=== PATIENT | male | born 1970 | race Caucasian/White ===

== ENCOUNTER → 2017-12-12 | Outpatient (CLI) | payer BC ==
--- NOTE | 2017-12-12 14:23 | KCIC ---
MR of the right knee Indication: Right knee pain, recent injury last 6 weeks. Previous meniscal surgery. Pain medial and anterior and posterior. Technique: The standard multiplanar sequences are obtained. FINDINGS: Artifact: No significant image degradation. Medial meniscus: Degenerative tear Lateral meniscus: Intact. Anterior cruciate ligament: Intact Posterior cruciate ligament: Intact Medial collateral ligament: Intact. Lateral structures: * Iliotibial band: Intact. * Lateral collateral ligament: Intact. * Biceps femoris tendon: Intact * Popliteus tendon attachment: Intact Extensive mechanism: * Patellar tendon: Intact * Quadriceps tendon: Intact * Retinacular structures: Intact Fluid: Small joint effusion. Small García's cyst. Intra-articular bodies: None visualized Joint compartments * patellofemoral joint:Intact * medial compartment: Degenerative chondral thinning. Minimal subchondral marrow edema at the medial tibial plateau is likely degenerative. * lateral compartment:Intact Bones: No significant lesion or acute fracture. Soft tissue: Unremarkable Impression: 1. Medial meniscal tear. 2. Medial compartment primary osteoarthritis. Electronically signed by: Andrey Betts MD (12/12/2017 2:20 PM) [facility]
== END | disposition home or self-care (01) ==
LOC: KCIC MRI 12:41
PROVIDERS: ATTEND Family Medicine
DX: S83.241A Other tear of medial meniscus, current injury, right knee, initial encounter (principal); M17.11 Unilateral primary osteoarthritis, right knee; M25.461 Effusion, right knee; X58.XXXA Exposure to other specified factors, initial encounter; Y93.89 Activity, other specified; Y92.89 Other specified places as the place of occurrence of the external cause; Y99.8 Other external cause status
CPT/HCPCS: 73721

== ENCOUNTER 2018-12-09 07:14 | Emergency (ER) | payer BC, OTHER ==
[~2018-12-09] VITALS: Ht 172.7 cm; Wt 108.9 kg
[2018-12-09 07:20] VITALS: BP 167/99
[2018-12-09] MEDS ORDERED: CYCL10TA2 PO (07:39)
[2018-12-09] MEDS ORDERED: HYDR-3164 PO (07:39)
--- NOTE | 2018-12-09 07:39 | PHYS DOC ---
Adult General Chief Complaint Chief Complaint: UPPER EXTREMITY INJURY [facility] HPI Patient is a 48 year old right-handed male who presents with complaining of left arm pain. Patient states he felt a pop in left arm while working on his motorcycle yesterday and since then has painful movement of left upper extremity and thinks his biceps muscle has some problem patient rated his pain 2 without movement and 8 with activity and denies focal neurodeficit and other injuries. Review of Systems Review of Systems Constitutional: Denies fever or chills [] Eyes: Denies change in visual acuity, redness, or eye pain [] HENT: Denies nasal congestion or sore throat [] Respiratory: Denies cough or shortness of breath [] Cardiovascular: No additional information not addressed in HPI [] GI: Denies abdominal pain, nausea, vomiting, bloody stools or diarrhea [] : Denies dysuria or hematuria [] Musculoskeletal: Denies back pain, reports joint pain [] Integument: Denies rash or skin lesions [] Neurologic: Denies headache, focal weakness or sensory changes [] Endocrine: Denies polyuria or polydipsia [] All other systems were reviewed and found to be within normal limits, except as documented in this note. Allergies Allergies Allergies Coded Allergies Type Severity Reaction Last Updated Verified Iodinated Contrast Media Allergy Intermediate rash 12/09/18 Yes ibuprofen Allergy Intermediate unknown 12/09/18 Yes Physical Exam Physical Exam Constitutional: Well developed, well nourished, mild distress, non-toxic appearance. [] HENT: Normocephalic, atraumatic. Eyes: PERRLA, EOMI, conjunctiva normal, no discharge. [] Neck: Normal range of motion, no tenderness, supple, no stridor. [] Cardiovascular:Heart rate regular rhythm, no murmur [] Lungs & Thorax: Bilateral breath sounds clear to auscultation [] Extremities: Left upper extremity without deformity, contusion, edema,tenderness, no cyanosis, no clubbing, painful ROM, no edema. [] Neurologic: Alert and oriented X 3, no focal deficits noted. [] Psychologic: Affect normal, judgement normal, mood normal. [] Current Patient Data Vital Signs Vital Signs Date Time Temp Pulse Resp B/P (MAP) Pulse Ox O2 Delivery O2 Flow Rate FiO2 12/09/18 07:20 98.4 81 16 167/99 (121) 97 Room Air 98.4 EKG EKG [] Radiology/Procedures Radiology/Procedures [] Course & Med Decision Making Course & Med Decision Making Evaluation of patient in ER showed 48-year-old male patient with left arm muscle injury without neurovascular deficit or contusion. Shoulder sling was applied and patient was advised to use ice and take prescribed medication and follow up with his primary care physician for further evaluation. Dragon Disclaimer Dragon Disclaimer This electronic medical record was generated, in whole or in part, using a voice recognition dictation system. Departure Departure Impression: Primary Impression: Biceps muscle strain Disposition: HOME, SELF-CARE (at 0736) Condition: STABLE Referrals: IBRAHIMA WISE MD (PCP) Patient Instructions: Muscle Strain Additional Instructions: Apply ice on the affected area Follow-up with your primary care physician in 3-5 days Return to ER if not getting better Scripts Hydrocodone/Apap 5-325 (NORCO 5-325 TABLET) 1 Each Tablet 1 TAB PO PRN Q6HRS PRN for PAIN, #12 TAB 0 Refills Prov: EMILI LOMAS MD 12/09/18 Cyclobenzaprine Hcl (CYCLOBENZAPRINE HCL) 10 Mg Tablet 1 TAB PO TID, #21 TAB Prov: EMILI LOMAS MD 12/09/18 Problem Qualifiers Primary Impression: Biceps muscle strain Encounter type: initial encounter Laterality: left Qualified Codes: S46.212A - Strain of muscle, fascia and tendon of other parts of biceps, left arm, initial encounter EMILI LOMAS MD Dec 09, 2018 07:39
== END 2018-12-09 07:51 | disposition home or self-care (01) ==
LOC: ER 07:14
DX: S46.212A Strain of muscle, fascia and tendon of other parts of biceps, left arm, initial encounter (principal); Z91.041 Radiographic dye allergy status; Z88.8 Allergy status to other drugs, medicaments and biological substances; X50.9XXA Other and unspecified overexertion or strenuous movements or postures, initial encounter; Y93.89 Activity, other specified; Y92.89 Other specified places as the place of occurrence of the external cause; Y99.8 Other external cause status
CPT/HCPCS: 99283

== ENCOUNTER → 2020-03-13 | Outpatient (CLI) | payer OTHER ==
[~2020-03-13] MED LIST: AMLO-187 PO; ASPI-886 PO; CELE200C PO; CLOP75TA PO; CYCL10TA2 PO; HYDR-3164 PO; OMEP20TA8 PO; RIVA10TA PO; SILD50TA PO; VALA500T5 PO
== END ==
LOC: LAB 12:04
PROVIDERS: ATTEND Internal Medicine Cardiovascular Disease
DX: Z01.812 Encounter for preprocedural laboratory examination (principal); I73.9 Peripheral vascular disease, unspecified; Z20.828 Contact with and (suspected) exposure to other viral communicable diseases
CPT/HCPCS: U0003

== ENCOUNTER 2020-03-16 06:45 | Outpatient (CLI) | payer OTHER ==
[~2020-03-16] VITALS: Ht 172.7 cm; Wt 113.4 kg
[2020-03-16] VITALS (12 sets, daily range): BP systolic 109–133; BP diastolic 63–79
[~2020-03-16 06:45] MED LIST changes: -AMLO-187 PO; -ASPI-886 PO; -CELE200C PO; -CLOP75TA PO; -OMEP20TA8 PO; -RIVA10TA PO; -SILD50TA PO; -VALA500T5 PO
[2020-03-16 07:30] LABS: HEMATOCRIT 46.3 % (39.0-53.0); HEMOGLOBIN 16.4 g/dL (13.0-17.5); RED BLOOD COUNT 4.83 x10^6/uL (4.30-5.70); RED CELL DISTRIBUTION WIDTH 12.4 % (11.5-14.5); WHITE BLOOD COUNT 5.9 x10^3/uL (4.0-11.0)
[2020-03-16] MEDS ORDERED: HEPARIN for ARTERIAL LINE 1,500 ML ONE (07:33)
[2020-03-16] MEDS ORDERED: LIDOCAINE 1% Multi-Dose 20 ML VIAL. ONE (07:33)
[2020-03-16] MEDS ORDERED: IODIXANOL 320 MG/ML 100 ML VIAL. ONE (07:33)
[2020-03-16 07:38] LABS: CREATININE 0.8 mg/dL (0.7-1.3); GFR 101.5; POTASSIUM 4.1 mmol/L (3.5-5.1)
--- NOTE | 2020-03-16 07:42 | PDOC ---
MODERATE SEDATION ASSESSMENT RISKS/ALTERNATIVES Risks/Alternatives Risks and alternatives of this type of sedation and procedure discussed with: RISK/ALTERNATIVES: Patient H & P ON CHART H & P H & P on chart and reviewed for co-morbid conditions and appropriate labs. H&P ON CHART: Yes STATUS PREG STATUS ASSESSED: N/A MEDS/ALLERGIES REVIEWED Meds/Allergies Reviewed Medications and Allergies including time and route of recently administered narcotics and sedatives. MEDS/ALLERGIES REVIEWED: Yes ASA RATING ASA RATING: II AIRWAY ASSESSMENT Airway Assessment Airway patency, oral function limitations, presence of caps, crowns, dentures, partials, and ability to extend neck assessed. AIRWAY ASSESSMENT: Yes MALLAMPATI SCORE MALLAMPATI SCORE: II PRE-SEDATION ASSESSMENT PRE-SEDATION ASSESSMENT: Yes BRENNA ONEILL MD Mar 16, 2020 07:42
[2020-03-16] MEDS ORDERED: MIDAZOLAM HCL/PF 2 MG/2 ML VIAL. ONE (07:43)
[2020-03-16] MEDS ORDERED: fentaNYL PF VIAL 100 MCG/2 ML VIAL ONE ×2 (07:43→08:43)
[2020-03-16] MEDS ORDERED: HEPARIN for IV BOLUS 10,000 UNIT/10 ML VIAL. ONE ×2 (07:44→09:07)
--- NOTE | 2020-03-16 07:46 | PDOC1 ---
History and Physical Visit Information Date of Admission: 03/16/2020 History of Present Illness History of Present Illness Patient is a 50-year-old man who comes into the hospital today for a planned elective outpatient aortogram with runoff. He was originally seen in the office in mid January due to complaints of significant lifestyle limiting right lower extremity pain. He underwent an outpatient duplex study which revealed critical stenosis at the level of the distal SFA. His in office examination was consistent with a distal SFA lesion. After discussion of the risks and benefits he wanted to proceed with an aortogram with runoff for symptomatic lifestyle limiting claudication. He also had some atypical chest pain and a previous myocardial perfusion study was unremarkable. Cardiac Risk Factors Comments 1. Hypertension 2. Tobacco abuse Current Medications Current Medications Current Medications Heparin Sodium/ Sodium Chloride 1,500 ml @ As Directed STK-MED ONCE .ROUTE ; Start 03/16/20 at 07:33; Stop 03/16/20 at 07:33; Status DC Iodixanol (Visipaque 320) 100 ml STK-MED ONCE .ROUTE ; Start 03/16/20 at 07:33; Stop 03/16/20 at 07:33; Status DC Lidocaine HCl (Lidocaine 1% 20ml Vial) 20 ml STK-MED ONCE .ROUTE ; Start 03/16/20 at 07:33; Stop 03/16/20 at 07:33; Status DC Allergies Allergies Allergies Coded Allergies Type Severity Reaction Last Updated Verified Iodinated Contrast Media Allergy Intermediate rash 12/09/18 Yes ibuprofen Allergy Intermediate unknown 12/09/18 Yes Social History Comments Positive for tobacco abuse. He is currently working. Family History Comments Positive for coronary artery disease ROS Review of System Negative for 10 out of 14 systems reviewed unless otherwise mentioned above in HPI Physical Exam General: Alert, Oriented X3, Cooperative HEENT: Atraumatic Lungs: Clear to auscultation Heart: Regular rate CHEST: Clear to auscultation Abdomen: Normal bowel sounds Extremities: No clubbing, Other (Diminished right popliteal pulse and pedal pulses) Skin: No rashes Neuro: Normal gait Labs Labs Laboratory Tests Test 03/16/20 07:25 White Blood Count 5.9 x10^3/uL (4.0-11.0) Red Blood Count 4.83 x10^6/uL (4.30-5.70) Hemoglobin 16.4 g/dL (13.0-17.5) Hematocrit 46.3 % (39.0-53.0) Mean Corpuscular Volume 96 fL (79-100) Mean Corpuscular Hemoglobin 34 pg (25-35) Mean Corpuscular Hemoglobin Concent 35 g/dL (31-37) Red Cell Distribution Width 12.4 % (11.5-14.5) Platelet Count 188 x10^3/uL (140-400) Laboratory Tests Test 03/16/20 07:25 White Blood Count 5.9 x10^3/uL (4.0-11.0) Red Blood Count 4.83 x10^6/uL (4.30-5.70) Hemoglobin 16.4 g/dL (13.0-17.5) Hematocrit 46.3 % (39.0-53.0) Mean Corpuscular Volume 96 fL (79-100) Mean Corpuscular Hemoglobin 34 pg (25-35) Mean Corpuscular Hemoglobin Concent 35 g/dL (31-37) Red Cell Distribution Width 12.4 % (11.5-14.5) Platelet Count 188 x10^3/uL (140-400) Images Images Duplex ultrasound of the right lower extremity reveals diminished velocities at the distal SFA popliteal junction ECG EKG: NSR VTE Prophylaxis Ordered VTE Prophylaxis Devices: No VTE Pharmacological Prophylaxi: No Assessment/Plan Assessment/Plan 1. Significant lifestyle limiting claudication. Plan for aortogram with runoff and likely intervention of the SFA depending on initial angiographic findings. Justicifation of Admission Dx: Justifications for Admission: Justification of Admission Dx: Yes BRENNA ONEILL MD Mar 16, 2020 07:46
[2020-03-16] MEDS ORDERED: VALA500T5 PO (08:05)
[2020-03-16] MEDS ORDERED: CELE200C PO (08:05)
[2020-03-16] MEDS ORDERED: OMEP20TA8 PO (08:05)
[2020-03-16] MEDS ORDERED: AMLO-187 PO (08:05)
[2020-03-16] MEDS ORDERED: SILD50TA PO (08:05)
[2020-03-16] MEDS ORDERED: diphenhydrAMINE 50 MG/ML VIAL IVP ONE (08:15)
[2020-03-16] MEDS ORDERED: IODIXANOL 320 MG/ML 100 ML VIAL. IART ONE (08:15)
[2020-03-16] MEDS ORDERED: FAMOTIDINE 20 MG/2 ML VIAL IVP ONE (08:15)
[2020-03-16] MEDS ORDERED: methylPREDNISolone SOD SUCC PF 125 MG/2 ML VIAL. IV ONE (08:15)
[2020-03-16] MEDS ORDERED: LIDOCAINE 1% Multi-Dose 20 ML VIAL. INJ ONE (08:15)
[2020-03-16] MEDS ORDERED: MIDAZOLAM HCL/PF 2 MG/2 ML VIAL. IV ONE (08:15)
[2020-03-16] MEDS ORDERED: fentaNYL PF VIAL 100 MCG/2 ML VIAL IV ONE (08:15)
[2020-03-16] MEDS ORDERED: CONTRAST GIVEN. MC PRN (08:30)
[2020-03-16] MEDS ORDERED: HEPARIN for IV BOLUS 10,000 UNIT/10 ML VIAL. IV ONE (09:00)
[2020-03-16] MEDS ORDERED: NITROGLYCERIN 200 MCG/2 ML SYRINGE FOR CATH/VASC LAB. IART ONE (09:15)
[2020-03-16] MEDS ORDERED: HEPARIN for ARTERIAL LINE 0 ML ONE (09:58)
[2020-03-16] MEDS ORDERED: ASPIRIN 325 MG TABLET PO ONE (10:00)
[2020-03-16] MEDS ORDERED: CLOPIDOGREL BISULFATE 75 MG TABLET PO ONE (10:00)
[2020-03-16] MEDS ORDERED: ASPIRIN 325 MG TABLET ONE (10:06)
[2020-03-16] MEDS ORDERED: CLOPIDOGREL BISULFATE 75 MG TABLET ONE (10:07)
--- NOTE | 2020-03-16 10:31 | CARD ---
MR#: [id number] Date of Study: 03/16/2020 Ordering Physician: BRENNA ONEILL, Referring Physician: BRENNA ONEILL, Tech: Moise Gayle RT (R) APPROVED REPORT Patient StatusOUT-PATIENT Whale Fisherman: Moise Gayle RT (R) Procedure(s) performed: Sedation Time: 118 Minutes Dose: 125.46 Gycm2 Contrast: 131 mL Visipaque Fluoro Time: 17.3 Minutes Aortogram with bilateral peripheral run-off Complex PVI of the RSFA with orbital atherectomy and drug coated balloon angioplasty. HISTORY : The patient is a 50 year-old male with a history of . INDICATION FOR PROCEDURE The indication(s) include : Unilateral claudication: Right, Rest pain: Right lower extremity. PROCEDURE NARRATIVE After appropriate informed consent the left groin was prepped and draped in usual sterile fashion. Under 2% lidocaine local anesthesia a 5 [place] introducer sheath was placed in the left common femora l artery via the modified Seldinger technique. Next a 5 [place] Omni Flush catheter was advanced to t he abdominal aorta and digital subtraction angiography was performed. The Omni Flush catheter was th en used to cannulate the right common iliac artery and with the help of a guidewire this was placed i n the right common femoral artery. Right lower extremity angiography was then performed. Prior to c ase completion the left lower extremity was also evaluated with a runoff. Findings: Aortic pressure: 140/80 Aorta: No significant disease Bilateral renal arteries are patent without any significant disease Bilateral common iliacs are patent without any significant disease Bilateral external and internal iliac vessels did not demonstrate any significant disease Bilateral common femoral arteries did not demonstrate any significant disease The right SFA has a distal 100% occlusion at the level of the abductor canal. The very distal SFA at the popliteal junction has diffuse 60% stenosis. The right popliteal artery has no significant disease The right anterior tibial, posterior tibial and peroneal arteries are patent without any significant disease The left SFA has a distal 30% stenosis The left popliteal artery has no significant disease The left anterior tibial, posterior tibial and peroneal arteries are patent without any significant d isease Interventional technique: Based on the patient's presentation of significant lifestyle limiting claudication, right SFA occlusi on a intervention was planned. Heparin was used for anticoagulation. The 5 [place] sheath was exchan ged for a 6 [place] Terumo destination sheath. A 0.035 inch Robbin cross catheter was used along with a 0.014 inch command ES wire to traverse the occlusion. Next, confirmation of true lumen wire placeme nt was confirmed with contrast angiography. The command ES wire was exchanged for a Viper wire. Orb ital atherectomy was performed with a CSI 1.5 mm oscar at low and medium rotational speeds. The lesio n was then angioplastied with a 5.0 x 80 mm balloon at nominal pressure. Subsequently, it was angiop lastied with a 6.0 x 80 mm drug-coated balloon. Final angiography revealed less than 20% residual st enosis with robust flow and three-vessel runoff below the knee. Therefore further intervention was d eferred. The left groin sheath was removed and hemostasis was achieved via manual compression. Complications: No acute complications noted Conclusion 1. Severe [place] Category 3/4 lifestyle limiting claudication and intermittent rest pain. 2. RSFA occlusion treated with drug coated balloon angioplasty with a 6.0/80 mm balloon Recommendations Plavix 75mg daily Xarelto 2.5mg bid for 30 days. Risk factor modification Signed by : Brenna Oneill, Electronically Approved : 03/16/2020 10:30:29
[2020-03-16 11:18] LABS: CHOLESTEROL/HDL RATIO 4.8
[2020-03-16] MEDS ORDERED: CLOP75TA PO (13:31)
[2020-03-16] MEDS ORDERED: RIVA10TA PO (13:33)
[2020-03-16] MEDS ORDERED: ASPI-886 PO (13:33)
--- NOTE | 2020-03-16 14:48 | NUR ---
pt ambulated and tolerated PO. Discharge instructions reviewed with patient. PIV dc'd./ Pt home with friend in private vehicle
[2020-07-26] MEDS ORDERED: OMEP40CA7 PO (04:16)
[2020-07-27] MEDS ORDERED: CLOP75TA PO (11:08)
[2020-07-27] MEDS ORDERED: METO25TA2 PO (11:08)
[2020-07-27] MEDS ORDERED: LISI-517 PO (11:08)
[2020-07-27] MEDS ORDERED: ATOR20TA58 PO (11:08)
== END 2020-03-16 14:49 | disposition home or self-care (01) ==
LOC: CCL 06:45
PROVIDERS: ATTEND Internal Medicine Cardiovascular Disease
DX: I73.9 Peripheral vascular disease, unspecified (principal); I10 Essential (primary) hypertension; K21.9 Gastro-esophageal reflux disease without esophagitis; F17.210 Nicotine dependence, cigarettes, uncomplicated; Z79.82 Long term (current) use of aspirin; Z79.899 Other long term (current) drug therapy; Z98.890 Other specified postprocedural states; Z91.041 Radiographic dye allergy status; Z88.8 Allergy status to other drugs, medicaments and biological substances
CPT/HCPCS: 36415; 37225; 75625; 75716; 80048; 80061; 85027; 85347; 85610; 99152; 99153; C1713; C1724; C1769; C1892; C1894; C2623; J1200; J1644; J2250; J2930; J3010; J3490; J7030; Q9967